=== PATIENT | female | born 1945 | race Caucasian/White ===

== ENCOUNTER 2017-03-29 05:56 | Day surgery (SDC) | payer MEDICARE, OTHER ==
[~2017-03-29] VITALS: Ht 157.5 cm; Wt 94.6 kg
[~2017-03-29 05:56] MED LIST: ASPI-973 PO; CHOL200047 PO; CLOB15CR3 TOP; LEVO125T6 PO; LOSA25TA21 PO; Lactated Ringer's 1,000 ML IV SCH; METO25TA99 PO; SIMV20TA4 PO
[2017-03-29 06:52] VITALS: BP 141/76; PULSE 31; RESP 17; O2SAT 97
== END 2017-03-29 23:59 | disposition home or self-care (01) ==
LOC: SAS 05:56
PROVIDERS: ATTEND Student in an Organized Health Care Education/Training Program
DX: E21.3 Hyperparathyroidism, unspecified (principal); I49.3 Ventricular premature depolarization; R00.1 Bradycardia, unspecified; E66.8 Other obesity; Z87.440 Personal history of urinary (tract) infections; Z87.891 Personal history of nicotine dependence; Z79.82 Long term (current) use of aspirin; Z68.38 Body mass index [BMI] 38.0-38.9, adult; Z53.8 Procedure and treatment not carried out for other reasons
CPT/HCPCS: 93005; J7120

== ENCOUNTER 2017-05-02 07:38 | Day surgery (SDC) | payer MEDICARE, OTHER ==
[~2017-05-02] VITALS: Ht 157.5 cm; Wt 92.8 kg
[2017-05-02] VITALS (7 sets, daily range): BP systolic 125–147; BP diastolic 53–69; PULSE 55–85; RESP 16–22; O2SAT 93–98
[~2017-05-02 07:38] MED LIST changes: +Dexamethasone 4 mg/mL Inj IVPUSH PRN; +EPHEDrine Sulfate 50 mg/mL Inj IVPUSH PRN; +HYDROmorphone 1 mg/mL Inj IVPUSH PRN; +Labetalol 5 mg/mL 4 mL Inj IV PRN; +Lactated Ringer's 1,000 ML IV ONE; +Lactated Ringer's 500 ML IV PRN; +MetoCLOpramide 5 mg/mL 2 mL Inj IVPUSH PRN; +Ondansetron 2 mg/mL 2 mL Inj IVPUSH PRN; +Phenylephrine 10,000 mCg/mL Inj IVPUSH PRN; +fentaNYL-PF 50 mCg/mL 2 mL Inj IVPUSH PRN; +hydrALAZINE 20 mg/mL Inj IVPUSH PRN
[2017-05-02] MEDS ORDERED: fentaNYL-PF 50 mCg/mL 2 mL Inj ONE (07:39)
[2017-05-02] MEDS ORDERED: Ondansetron 2 mg/mL 2 mL Inj ONE (07:39)
[2017-05-02] MEDS ORDERED: Rocuronium 10 mg/mL 5 mL Inj ONE (07:39)
[2017-05-02] MEDS ORDERED: Glycopyrrolate 0.2 MG/ML 1mL Inj ONE (07:39)
[2017-05-02] MEDS ORDERED: EPHEDrine/NS 5 mg/mL 5 mL Syringe ONE (07:39)
[2017-05-02] MEDS ORDERED: Neostigmine 1 mg/mL 10 mL Inj ONE (07:39)
[2017-05-02] MEDS ORDERED: Ketamine 10 mg/mL 20 mL Inj ONE (07:39)
[2017-05-02] MEDS ORDERED: Propofol 10,000 mCg/mL 20 mL Inj ONE (07:39)
[2017-05-02] MEDS ORDERED: Dexamethasone 4 mg/mL Inj ONE (07:39)
[2017-05-02] MEDS ORDERED: Bupivacaine-MPF 0.5% W/EPI 30 mL Inj INFILTRATE ONE (10:07)
--- NOTE | 2017-05-02 11:06 | PCM.HPANE ---
Patient Data Date of Service: May 02, 2017 Surgeon Admitting Provider: Attending Provider:Sony Hagen MD Primary Care Physician:Taylor Morales Other Provider:Belia Melendez Anesthesia Reason for Visit Hyperparathyroidism Ht/WT & BMI Height (Feet): 5 Height (Inches): 2 Weight (Kilograms): 92.8 Body Mass Index 37.00 Allergies Coded Allergies: Penicillins (Verified Adverse Reaction, Severe, Diarrhea, 04/25/17) tizanidine (Verified Adverse Reaction, Severe, Hallucinations and muscle cramps, 04/25/17) Past Anesthesia History Anesthesia History: Denies:: Anesthesia Reactions, Malignant Hyperthermia Diabetes History Hx Diabetes?: No MRSA MRSA: No Medications Blood Thinner: Aspirin Hypertension Medication: Yes (LOSARTAN) Home Meds Incl Beta Laya: Yes Date Beta Laya Taken: May 01, 2017 Time Beta Laya Taken: 2200 Reported Medications Cholecalciferol (Vitamin D3) (Vitamin D3)2,000 Unit Capsule2,000 Unit PO DAILY 03/28/17 Simvastatin 20 Mg [id number] Mg PO HS Ref 0 03/28/17 Metoprolol Succinate ER 25 Mg Tab.er.[id number] Mg PO DAILY Ref 0 03/28/17 Losartan Potassium 25 Mg [id number] Mg PO DAILY 03/28/17 Levothyroxine 125 Mcg [id number] Mcg PO DAILY For Thyroid Replacement Ref 0 03/28/17 Clobetasol Propionate/Emoll (Clobetasol Emollient 0.05% Crm)15 Gm Cream..g.1 Appl TOP BID PRN UNKNOWN #1 TUBE 03/28/17 Aspirin 81 Mg [id number] Mg PO DAILY Ref 0 03/28/17 History History of ENT Problems?: Yes HEENT History: Positive for:: Cataracts (s/p extractions) Hearing Problem Sinus Problem Denies:: Dysphagia Denture Type: None Teeth Condition: Within Normal Limits Hx of Heart Problems?: Yes Cardiovascular History: Positive for:: Cardiac Surgery (HEART CATH 04/2016) Chest Pain (Once) Coronary Artery Disease ("MINOR") Edema Hypertension (HYPERLIPIDEMIA) Irregular Heartbeat (PVC's ) Denies:: Congestive Heart Failure Heart Murmur (ECHO 12/2015 EF 60-65%) Valvular Heart Disease Hx of Respiratory Problem?: Yes Respiratory History: Positive for:: Use of C-PAP Machine Denies:: Asthma Chest Surgery Dyspnea Oxygen Administration Pneumonia Tuberculosis Hx Neurologic Problems?: No Neurological History: Denies:: CVA Dementia Dizziness Headaches Parkinson's Disease Seizures Hx of GI Problems?: No Hx of Problems?: No Female Hx: Denies:: Currently Skin History: Positive for:: History Skin Disorders? (Rash in groin S/P EXC SKIN MELANOMA) Denies:: Pressure Ulcers Hx Musculoskeletal Problems?: Yes Musculoskeletal History: Positive for:: Back Injury Denies:: Joint Replacement Hx of Psycho/Social Problems?: No Hx Surgeries?: Yes (EXC PILONIDAL CYST,CATARACTS,ACDF,HYST,EXC SKIN MELANOMA, HEART CATH) Hx Any Other Health Problems?: Yes Other History: Positive for:: Cancer (Melanoma) Hospitalization Thyroid Disease Denies:: Endocrine Disease History Blood Transfusions: Denies:: Blood Transfusions Hx Diabetes: No Hx Alcohol Use: Yes (Occasionally)Hx Substance Use: No Smoking Status: Former Smoker Have You Smoked inLast 12 mo: NoApprox How Many Cigarettes/day: 1/2 PPD X 10YRS Stop/Bang S-Snoring: Do You Snore Loudly: Yes T-Tired: feel tired, fatigued: Yes O-Obsered: Observed not breath: No P-Blood Pressure: treated: Yes B- Body Mass Index > 35 kg/m2: Yes A- Age over 50: Yes N- Neck Large Circumference: Yes G- Gender Male: No JUAN Total Score: 6 JUAN Risk Assessment: High Risk, =/>3 Yes JUAN Category 1: Yes Risk Assessment Category Category 1A: Patient has history of documented sleep apnea, and HAS NOT received any narcotic, sedative or anesthesia administration during this stay. Category 1B: Patient has history of documented sleep apnea, and HAS received any narcotic , sedative or anesthesia administration during this stay Category 2: Patient has SUSPECTED Obstructive Sleep Apnea, and HAS received any narcotic , sedative or anesthesia administration during this stay. Category 3: Patient has SUSPECTED Obstructive Sleep Apnea and HAS NOT received narcotic, sedative or anesthesia administration during this stay. Category 4: Outpatient in Procedural Areas with known sleep apnea or who screen positive for High Risk via the STOP/BANG questionnaire. Exam Exam Vital Signs Vital Signs Date Time Temp Pulse Resp B/P Pulse Ox O2 Delivery O2 Flow Rate FiO2 05/02/17 08:23 CPAP/BIPAP 05/02/17 08:14 35.3 55 17 144/69 96 Room Air General Appearance: Alert, Oriented X3, Cooperative, No Acute Distress HEENT/AIRWAY: MP 4, Neck Movement, Other (retrognathia, thick neck) Lungs: Clear to Auscultation, Normal Air Movement Heart: Exam Unremarkable, Regular Rate/Rhythm, No Murmurs/Rubs/Gallops Meds/Labs/Diagnostics Admission Meds Current Medications Lactated Ringer's (Lr) 1,000 ml @ 120 mls/hr Q8H20M ONCE IV Last administered on 05/02/17 08:06; Start 05/02/17 at 05:00; Stop 05/02/17 at 13:19 Scopolamine (Transderm-Scop Patch) 1.5 mg STK-MED ONCE TOPICAL Last administered on 05/02/17 08:20; Start 05/02/17 at 08:17; Stop 05/02/17 at 08:18 ; Status DC Bupivacaine HCl/ Epinephrine Bitart (Sensorcaine-MPF 0.5% W/EPI Inj) 30 ml STK- MED ONCE INFILTRATE Last administered on 05/02/17 10:07; Start 05/02/17 at 10: 07; Stop 05/02/17 at 10:26; Status DC Plan Impression Patient chart reviewed, patient interviewed and anesthestic plan with risks, benefits, and alternatives discussed, and informed consent obtained. NPO per Anesth. Guidelines: Yes ASA Physical Status: ASA2 Mod Systemic Disease Anesthetic Support Modalities: [place] Scope Anesthetic Plan: GA Bene/Risks/Altern/Consents: Yes HP Complete Prior to Induction: Yes Nelson Estevez MD May 02, 2017 11:06
--- NOTE | 2017-05-02 13:26 | PCM.SURGOP ---
Surgical Operative Report Date of Service: May 02, 2017 Pre Operative Diagnosis Primary hyperparathyroidism Post Operative Diagnosis Same, left superior parathyroid adenoma, likely right superior parathyroid adenoma Procedure: Parathyroid exploration Surgeon and Dye Range Operator: Surgeon: Sony Hagen MD Assistants: Nadia Galeano MD; Ajay Sanchez MD PGY-3 Indication for Procedure 72-year-old woman who has a prior history of a cervical fusion through an anterior approach, who developed primary hyperparathyroidism. She had a preoperative PTH of 92, with a calcium of 10.5. Her imaging studies were consistent with possible double adenoma, with a left superior parathyroid adenoma, and a lesion inferior and posterior to the right thyroid lobe. She was clinically euthyroid. After discussion of risks and benefits, she agreed to proceed with parathyroid exploration. Findings: There was a left superior parathyroid adenoma measuring 2.5 x 1.5 x 1.0 cm. There was a likely second adenoma in the right neck consistent with a superior parathyroid adenoma, measuring 2.4 x 1.2 x 0.6 cm. PTH at the start of the operation was 103, and at the end of the operation was 16. Both inferior parathyroid glands were probably visualized and biopsied. There was significant scar tissue from her prior neck fusion on the left side. Procedure Details After smooth induction of general endotracheal anesthesia, she was placed in the modified beachchair position with both arms tucked, and was prepped and draped in wide sterile fashion. A procedural pause was performed according to the SCOAP checklist, and all were found to be in agreement. Her prior transverse neck incision was reopened sharply, and there were several subcutaneous suture granulomas which were excised and discarded. Dissection was carried through the subcutaneous tissue until the platysma muscle was divided. Subplatysmal skin flaps were raised superiorly and inferiorly. There was significant scar tissue from her prior left-sided neck fusion. During elevation of the platysma, one of the anterior jugular veins on the right was encountered, and was controlled with a 5-0 Prolene suture. The left sternohyoid and sternal thyroid muscles were elevated en bloc off the underlying left thyroid lobe, which was fairly atrophic. Again, there was dense scar tissue. The left internal jugular vein was identified, and blood was drawn for stat PTH, which came back at 103. The left middle thyroid vein was divided with the LigaSure device. Posterior to the left superior thyroid lobe, there was a likely parathyroid adenoma. This was meticulously dissected free from the surrounding tissues, which was much more difficult than usual because of scar tissue. Once it was dissected free with the LigaSure device, the ex vivo measurement was 2.5 x 1.5 x 1.0 cm. It was sent for permanent pathology, labeled as left superior parathyroid adenoma. After 15 minutes, another stat PTH was drawn. It ultimately came back at 46. In the meantime, the right strap muscles were elevated off the right thyroid lobe. The right middle thyroid vein was divided. Posterior to the inferior pole along the spine , another abnormal soft tissue bundle was identified. This looked like parathyroid tissue, but it was not definite. It was separate from the thyroid gland. It was dissected free from its blood supply, which came off the inferior aspect of that tissue. Ex vivo, it was somewhat bilobed in shape. Measurements were 2.4 x 1.2 x 0.6 cm. It was sent for permanent pathology, labeled as right neck tissue, likely representing a right superior parathyroid adenoma but not definite. After 15 minutes, a third PTH was drawn, which ultimately came back at 16. In the meantime, both inferior parathyroid glands were probably identified in the thymic fat just off the inferior pole of both thyroid lobes. Biopsies were obtained from each side sharply using iris scissors. Both were normal in size. The right inferior parathyroid biopsy was sent for permanent pathology. The site was marked with a 5-0 Prolene suture. The left inferior parathyroid biopsy was sent for permanent pathology. The site was marked with a 5-0 Prolene suture. Hemostasis was adequate. The midline strap muscles were reapproximated with interrupted 3-0 Vicryl suture. The platysma was closed with interrupted 3-0 Vicryl suture. The skin incision was closed with a running 4-0 Monocryl subcuticular stitch. Dermabond was applied to the skin as a dressing. At the end of the case all needle and sponge counts were correct 2. The patient was awakened from anesthesia without difficulty, and taken to the recovery room in satisfactory condition, having tolerated the procedure well. Complications There were no periprocedural complications identified. Surgical Specimen Removed: Yes Specimen sent to Pathology: Yes Surgical Specimen description: Left superior parathyroid adenoma. Right neck tissue. Right inferior parathyroid biopsy. Left inferior parathyroid biopsy. Anesthetic Plan: GA Grafts, Implants: None Output, Estimated Blood Loss: 20 Blood Administration during zepeda: No Drains: None Catheters: None copies to: Jerod Chavarria MD; Taylor Morales Joshua D MD May 02, 2017 13:26
[2017-05-02] MEDS ORDERED: oxyCODONE-Acetamin 5-325 mg Tablet PO PRN (13:55)
--- NOTE | 2017-05-02 13:57 | PCM.DISURG ---
Surgical Discharge Instruction Date of Service May 02, 2017 Dates of Hospitalization Date of Hospital Admission Providers Admitting Physician: Primary Care Physician: Taylor Morales Attending Physician: Sony Hagen MD Discharge Diagnosis Post Operative diagnosis Same, left superior parathyroid adenoma, likely right superior parathyroid adenoma Diet Discharge Diet: No restrictions Activity Discharge Activity-General: Activity as pain allows, No driving while taking narcotic Dressing and Incisional Care Dressing Instructions: Liquid skin glue will begin to peel in several days. Hygiene: May shower, DO NOT soak incision under water Additional Instructions Discharge Instructions Take calcium carbonate, or TUMS, 500 mg, three times per day until your follow up appointment. Follow Up Plan Follow Up Plan Follow up in the general surgery clinic in the next few weeks. Call at any time with questions or concerns. Call your provider for: Fever, Chills, Wound redness, Increasing wound pain, Discharge @ incision, pus discharge Lewis Sanchez MD May 02, 2017 13:57
[2017-05-02] MEDS ORDERED: Lactated Ringer's 1,000 ML IV ONE (14:18)
--- NOTE | 2017-05-02 15:42 | PCM.ANEP1 ---
Post Anesthesia PACU Phase 1 Assessment Date of Service: May 02, 2017 Vital Signs Vital Signs Date Time Temp Pulse Resp B/P Pulse Ox O2 Delivery O2 Flow Rate FiO2 05/02/17 15:28 36.2 85 16 127/57 94 Room Air 05/02/17 14:30 77 18 133/60 98 Nasal Cannula 2 05/02/17 14:15 76 18 125/56 97 Nasal Cannula 05/02/17 14:05 78 21 133/53 93 Room Air 05/02/17 13:55 78 21 132/60 93 Room Air 05/02/17 13:48 36.8 81 22 147/64 93 Room Air 05/02/17 08:23 CPAP/BIPAP 05/02/17 08:14 35.3 55 17 144/69 96 Room Air Anesthetic Administered: GA Level of Alertness: Awake, talking Pain: No Nausea or Vomiting: No CV Function & Hydration Stable: Yes Airway Device: Oxygen Delivery: Room Air Lungs: Clear to Auscultation, Normal Air Movement PACU Phase 2 Assessment Complications: No Follow up Care: No Patient Instructions Provided: N/A Nelson Estevez MD May 02, 2017 15:42
--- NOTE | 2017-05-05 11:55 | PATH ---
SURGICAL PATHOLOGY Attending Physician:Lisa Restrepo CASE STATUS: Signed Out PATIENT NAME: OMID BOLOTN PID: [id number] : 1945 DATE COLLECTED:05/02/2017 00:00 SPECIMEN: 1: Parathyroid Gland 2: Soft Tissue Mass, Biopsy 3: Parathyroid Gland 4: Parathyroid Gland CLINICAL HISTORY: HYPERPARATHYROIDISM 1). LEFT SUPERIOR PARATHYROID GLAND 2). RIGHT NECK TISSUE 3). RIGHT INFERIOR PARATHYROID BIOPSY 4). LEFT INFERIOR PARATHYROID BIOPSY FINAL DIAGNOSIS: 1. Left Superior Parathyroid Gland, Parathyroidectomy: Hypercellular parathyroid tissue consistent with parathyroid adenoma. 2. Right Neck Tissue, Biopsy: Hypercellular parathyroid tissue consistent with parathyroid adenoma. 3. Right Inferior Parathyroid, Biopsy: Parathyroid tissue. 4. Left Inferior Parathyroid, Biopsy: Benign lymph node. No parathyroid tissue sampled. ICD10: D35.1 NOTE: The parathyroid tissue from parts 1, left superior, and 2, right neck, show hypercellular parathyroid tissue consistent with parathyroid adenoma. There is no evidence of atypia or vascular invasion. GROSS DESCRIPTION: The specimens are received in formalin, labeled with the patient's name, and sublabeled as the following: (1) left superior parathyroid gland; (2) right neck tissue; (3) right inferior parathyroid bx; (4) left inferior parathyroid bx. (1) The specimen consists of a fisher-cruz rubbery parathyroid gland (1.9 g, 2.5 x 1.7 x 0.7 cm). The parenchyma is pale-cruz and unremarkable. Section code: (1A-1B) parathyroid gland, bisected. Specimen entirely sedated. (2) The specimen consists of a piece of adipose tissue (3.0 x 1.1 x 0.5 cm) containing multiple possible lymph nodes (0.5 x 0.4 x 0.1 cm-1.0 x 0.9 x 0.4 cm). Section code: (2A) multiple intact lymph nodes and adipose tissue; (2C, 2D) one bisected lymph node in each cassette. Specimen entirely submitted. (3) The specimen consists of a fragment of cruz semi-translucent listening tissue (0.3 x 0.1 x 0.1 cm). Section code: (3A) tissue. Specimen entirely submitted. (4) The specimen consists of multiple fragments of cruz semi-translucent glistening tissue (0.5 x 0.2 x 0.1 cm in aggregate). Section code: (4A) tissue. Specimen entirely submitted. 05/03/17 HAZEL ICD-9 CODES: CPT CODES: 1: 90807 2: 02794 3: 00948 4: 98116 Electronically Signed Out Kiarra Hurd MD [facility] [address], [place] [address] Technical component performed at [facility], [address], [place], [address]
== END 2017-05-02 23:59 | disposition home or self-care (01) ==
LOC: SAS 07:38
PROVIDERS: ATTEND Student in an Organized Health Care Education/Training Program
DX: E21.3 Hyperparathyroidism, unspecified (principal); D35.1 Benign neoplasm of parathyroid gland; I25.10 Atherosclerotic heart disease of native coronary artery without angina pectoris; I49.3 Ventricular premature depolarization; E78.5 Hyperlipidemia, unspecified; G47.33 Obstructive sleep apnea (adult) (pediatric); E03.9 Hypothyroidism, unspecified; Z87.440 Personal history of urinary (tract) infections; Z87.891 Personal history of nicotine dependence; Z79.82 Long term (current) use of aspirin; Z85.820 Personal history of malignant melanoma of skin; Z90.710 Acquired absence of both cervix and uterus
CPT/HCPCS: 36415; 60500; 83970; 88305; J1100; J2250; J2405; J2710; J3010; J7120